=== PATIENT | male | born 1955 ===

== ENCOUNTER 2020-04-17 07:46 | Outpatient (CLI) | payer OTHER ==
[~2020-04-17 07:46] MED LIST: AQUASOL E15 IU/0.3 PO
== END 2020-04-17 08:02 | disposition home or self-care (01) ==
LOC: RAD 07:46
PROVIDERS: ATTEND General Practice
DX: R10.84 Generalized abdominal pain (principal); R25.2 Cramp and spasm; R06.02 Shortness of breath; R42 Dizziness and giddiness; Z13.89 Encounter for screening for other disorder; Z13.220 Encounter for screening for lipoid disorders

== ENCOUNTER 2021-11-01 13:16 | Emergency (ER) | payer OTHER ==
[~2021-11-01] VITALS: Ht 175.3 cm; Wt 76.7 kg
== END 2021-11-01 18:39 | disposition home or self-care (01) ==
LOC: ER 13:16
DX: M62.830 Muscle spasm of back (principal); Z20.822 Contact with and (suspected) exposure to COVID-19; I10 Essential (primary) hypertension

== ENCOUNTER 2021-11-06 08:09 | Outpatient (CLI) | payer OTHER | END 2021-11-06 08:24 | disposition home or self-care (01) | LOC: SONOGRAMA 08:09 | DX: I10 Essential (primary) hypertension (principal); F10.20 Alcohol dependence, uncomplicated ==

== ENCOUNTER 2025-01-27 07:18 | Outpatient (CLI) | payer OTHER | END 2025-01-27 07:29 | disposition home or self-care (01) | LOC: TOM 07:18 | PROVIDERS: ATTEND Internal Medicine Cardiovascular Disease | DX: I10 Essential (primary) hypertension (principal); F10.20 Alcohol dependence, uncomplicated ==

== ENCOUNTER 2025-02-16 07:10 | Outpatient (CLI) | payer OTHER | END 2025-02-16 07:12 | disposition home or self-care (01) | LOC: TOM 07:10 | DX: R53.81 Other malaise (principal); Z13.220 Encounter for screening for lipoid disorders; Z12.11 Encounter for screening for malignant neoplasm of colon; R42 Dizziness and giddiness; Z00.00 Encounter for general adult medical examination without abnormal findings; R21 Rash and other nonspecific skin eruption; Z12.5 Encounter for screening for malignant neoplasm of prostate; Z13.1 Encounter for screening for diabetes mellitus; R10.9 Unspecified abdominal pain; B34.2 Coronavirus infection, unspecified; Z11.59 Encounter for screening for other viral diseases; Z72.0 Tobacco use; Z13.89 Encounter for screening for other disorder; A94 Unspecified arthropod-borne viral fever; R05.9 Cough, unspecified; Z11.3 Encounter for screening for infections with a predominantly sexual mode of transmission; R25.2 Cramp and spasm; R06.02 Shortness of breath; H10.33 Unspecified acute conjunctivitis, bilateral; Z13.9 Encounter for screening, unspecified; R60.9 Edema, unspecified; I10 Essential (primary) hypertension; F10.20 Alcohol dependence, uncomplicated; I73.9 Peripheral vascular disease, unspecified; E78.5 Hyperlipidemia, unspecified; J43.9 Emphysema, unspecified; E78.2 Mixed hyperlipidemia; K74.60 Unspecified cirrhosis of liver ==